=== PATIENT | female | born 1930 | race African-American/Black ===

== ENCOUNTER 2017-05-24 22:05 | Emergency (ER) | payer OTHER ==
[~2017-05-24] VITALS: Ht 167.6 cm; Wt 66.7 kg
[2017-05-24] MEDS ORDERED: DiphenhydrAMINE 50mg/ml Inj IVP ONE (22:30)
--- NOTE | 2017-05-24 22:38 | Emergency Room Report ---
History of Present Illness General Chief Complaint: Allergic Reaction Source: Patient Present Illness HPI Is a pleasant 87-year-old female with a history of EBEN inhibitor induced angioedema. In January she had to be intubated because of it. In February she had a mild reaction with tongue swelling. Unknown etiology. Tonight after dinner she had some swelling her left side of her tongue. No respiratory complaint. Did not use her EpiPen. No nausea no vomiting. No fever or chills. No rash. Again unknown etiology. She had similar food like this before. Allergies: Coded Allergies: ASPIRIN (Verified Allergy, Unknown, 05/24/17) BANANA (Verified Allergy, Unknown, 05/24/17) FISH DERIVED (Verified Allergy, Unknown, 05/24/17) LISINOPRIL (Verified Allergy, Unknown, 05/24/17) ORANGE (Verified Allergy, Unknown, 05/24/17) PEANUT (Verified Allergy, Unknown, 05/24/17) PENICILLINS (Verified Allergy, Unknown, 05/24/17) STRAWBERRY (Verified Allergy, Unknown, 05/24/17) Patient History Past Medical History: see triage record, old chart reviewed, HTN Past Surgical History: other Pertinent Family History: none Social History: Denies: smoking Now: No Immunizations: other Reviewed Nursing Documentation: PMH: Agreed, PSxH: Agreed Nursing Documentation-PMH Past Medical History: No History, Except For Hx Hypertension: Yes Review of Systems Eye: Denies: eye pain, blurred vision ENT: Denies: ear pain, nose congestion, throat swelling Respiratory: Denies: cough, shortness of breath Cardiovascular: Denies: chest pain, palpitations Gastrointestinal: Denies: abdominal pain, diarrhea, nausea, vomiting Musculoskeletal: Denies: back pain, joint pain Skin: Denies: rash Neurological: Denies: headache, numbness Endocrine: Denies: increased thirst, increased urine Hematologic/Lymphatic: Denies: easy bruising All Other Systems: negative except mentioned in HPI Physical Exam Vital Signs Date Time Temp Pulse Resp B/P (MAP) Pulse Ox O2 Delivery O2 Flow Rate FiO2 05/24/17 22:09 97.9 95 18 183/86 98 Room Air vitals normal except for high blood pressure Sp02 EP Interpretation: reviewed, normal General Appearance: well appearing, no apparent distress, alert Head: normocephalic, atraumatic Eyes: bilateral eye PERRL, bilateral eye EOMI ENT: hearing grossly normal, normal pharynx, other - Mild edema to the left side of tongue. Neck: full range of motion, supple, no meningismus Respiratory: chest non-tender, lungs clear, normal breath sounds Cardiovascular #1: regular rate, rhythm, no murmur Gastrointestinal: normal bowel sounds, non tender, no mass, no organomegaly, no bruit, non-distended Musculoskeletal: back normal, gait/station normal, normal range of motion Psychiatric: mood/affect normal Skin: warm/dry Medical Decision Making Diagnostic Impression: Primary Impression: Allergic reaction Qualified Codes: T78.40XA - Allergy, unspecified, initial encounter ER Course Patient with mild angioedema of her left tongue.. Etiology unknown. No respiratory issue. No anaphylaxis. We'll observe until better. She recent upper GI bleed and that it may be due to steroid as she was on. She is hasn't take any steroid now. Because symptom is mild, will use give Benadryl and observed. He shouldn't and family agreeable with that. Last Vital Signs Date Time Temp Pulse Resp B/P (MAP) Pulse Ox O2 Delivery O2 Flow Rate FiO2 05/24/17 22:09 97.9 95 18 183/86 98 Room Air Status: improved Disposition: HOME, SELF-CARE Condition: Stable Scripts Diphenhydramine Hcl* (BENADRYL*) 25 Mg Capsule 50 MG ORAL Q6H Y for Itching, #30 CAP Prov: RAVINDER HEATH M.D. 05/24/17 Patient Instructions: Allergies Additional Instructions: Followup with your Dr. within 7 days. You may benefit from allergy testing. Return if symptom worsen. RAVINDER HEATH M.D. May 24, 2017 22:38
[2017-05-24] MEDS ORDERED: BENADRYL25 MG ORAL (22:49)
[2017-05-24 23:05] VITALS: BP 158/79
[2017-05-25 00:05] VITALS: BP 158/79
== END 2017-05-25 00:05 | disposition home or self-care (01) ==
LOC: EMR 22:50
DX: T78.40XA Allergy, unspecified, initial encounter (principal); X58.XXXA Exposure to other specified factors, initial encounter; R60.0 Localized edema; I10 Essential (primary) hypertension; Z88.6 Allergy status to analgesic agent; Z91.010 Allergy to peanuts; Z91.018 Allergy to other foods; Z88.8 Allergy status to other drugs, medicaments and biological substances
CPT/HCPCS: 96374; 99284; J1200